=== PATIENT | female | born 1980 | race Caucasian/White ===

== ENCOUNTER → 2017-01-30 | Day surgery (SDC) | payer BC ==
[2017-01-22 12:41] VITALS: Ht 177.8 cm; Wt 94.5 kg
[~2017-01-30] VITALS: Ht 177.8 cm; Wt 94.5 kg
[~2017-01-30] MED LIST: BUSP15TA70 PO; CHOL1000 PO; CITA20TA9 PO; DULO-24 PO; KLN5X PO; LIDOCAINE HCL 2% 2 ML VIAL (20MG/ML) ONE; MISCCAP80 PO; MULT-506 PO; ONDANSETRON INJ 2 MG/ML 2 ML VIAL ONE; PROPOFOL IV EMULSION 10 MG/ML 20 ML VIAL IV ONE; SODIUM CHLORIDE 0.9% 500ML 500 ML IV ONE; [UNRECOGNIZED DRUG - CODE] PO
--- NOTE | 2017-01-30 13:37 | Endo History and Physical ---
History & Physical Date of Service: Jan 30, 2017. Chief Complaint: ABD. CRAMPING, CHANGE IN BOWEL HABITS Referring Physician: DANNIE BROOKS PA-C History of Present Illness 36 yo CF who presents for colonoscopy secondary to abdominal cramping and change in bowel habits. Past Surgical History Hx Cardiac Surgery: No Hx Internal Defibrillator: No Hx Pacemaker: No Hx Abdominal Surgery: Yes (LT/RT INGUINAL HERNIA REPAIR) Hx of Implantable Prosthesis: No Hx Post-Op Nausea and Vomiting: Yes Hx Cancer Surgery: No Hx Thoracic Surgery: No Hx Orthopedic: No Hx Urinary Tract Surgery: No Family History None Social History Smoking Status: Never Smoker Hx Substance Use: No Hx Alcohol Use: Yes (SELDOM) Allergies Coded Allergies: Amoxicillin (Unverified Allergy, Mild, DIARRHEA, 01/30/17) Clavulanic Acid (Unverified Allergy, Mild, DIARRHEA, 01/30/17) Iodinated Diagnostic Agents (Verified Allergy, Unknown, N/V, 01/22/17) Current Medications Reported Home Medications Medications Dose Route/Sig Max Daily Dose Days Date Category Probiotic (Probiotic Product) 1 Cap Cap 1 Cap PO HS 01/22/17 Reported Nac (Acetylcysteine (Nutrient)) 500 Mg Cap 1 Cap PO HS 01/22/17 Reported Vitamin D3 (Cholecalciferol) 1,000 Unit Tab 1 Tab PO QAM 01/22/17 Reported Multivitamin (Multivitamins) Tab 1 Tab PO QAM 01/22/17 Reported Cymbalta (Duloxetine HCl) 20 Mg Cap 1 Cap PO QAM 01/22/17 Reported Clonazepam 0.5 Mg Tab 0.5 Mg PO BID PRN 11/14/14 Reported Buspar (Buspirone Hcl) 15 Mg Tab 15 Mg PO BID 11/14/14 Reported Celexa (Citalopram Hydrobromide) 20 Mg Tab 1.5 Tab PO HS 02/08/12 Reported Vital Signs Weight (Kilograms): 94.55 Height (Feet): 5 Height (Inches): 10 Date Time Temp Pulse Resp B/P (MAP) Pulse Ox O2 Delivery O2 Flow Rate FiO2 01/30/17 13:21 36.5 66 16 104/64 (77) 95 Room Air Physical Exam General Appearance: WD/WN, no apparent distress Respiratory/Chest: Auscultation: breath sounds normal Cardiovascular: Heart Auscultation: RRR Abdomen: Bowel Sounds: normal Inspection & Palpation: soft, non-distended, no tenderness, guarding & rebound Assessment and Plan Assessment: 36 yo CF who presents for colonoscopy secondary to abdominal cramping and change in bowel habits. Plan: Proceed with colonoscopy.
--- NOTE | 2017-01-30 14:34 | Discharge Instructions ---
Endoscopy Patient Instructions Date / Procedure(s) Performed Jan 30, 2017. Colonoscopy Allergy Information Coded Allergies: Amoxicillin (Unverified Allergy, Mild, DIARRHEA, 01/30/17) Clavulanic Acid (Unverified Allergy, Mild, DIARRHEA, 01/30/17) Iodinated Diagnostic Agents (Verified Allergy, Unknown, N/V, 01/22/17) Discharge Date / Findings Jan 30, 2017. Rectal polyp Random colon biopsies Medication Instructions OK to resume all medications today as prescribed Reported Home Medications Medications Dose Route/Sig Max Daily Dose Days Date Category Probiotic (Probiotic Product) 1 Cap Cap 1 Cap PO HS 01/22/17 Reported Nac (Acetylcysteine (Nutrient)) 500 Mg Cap 1 Cap PO HS 01/22/17 Reported Vitamin D3 (Cholecalciferol) 1,000 Unit Tab 1 Tab PO QAM 01/22/17 Reported Multivitamin (Multivitamins) Tab 1 Tab PO QAM 01/22/17 Reported Cymbalta (Duloxetine HCl) 20 Mg Cap 1 Cap PO QAM 01/22/17 Reported Clonazepam 0.5 Mg Tab 0.5 Mg PO BID PRN 11/14/14 Reported Buspar (Buspirone Hcl) 15 Mg Tab 15 Mg PO BID 11/14/14 Reported Celexa (Citalopram Hydrobromide) 20 Mg Tab 1.5 Tab PO HS 02/08/12 Reported Provider Instructions Activity Restrictions - No exercising or heavy lifting for 24 hours. - Do not drink alcohol the day of the procedure. - Do not drive a car or operate machinery until the day after the procedure. - Do not make any important decisions or sign important papers in 24 hours after the procedure. Following Day: - Return to full activity which may include returning to work/school. Diet Start your diet with liquids and light foods (jello, soup, juice, toast). Then eat your usual diet if not nauseated. Treatment For Common After Affects For mild abdominal pain, bloating, or excessive gas: - Rest - Eat lightly - Lie on right side Follow-Up Information Follow-up with DANNIE BROOKS PA-C as scheduled Anesthesia Information What You Should Know You have had a procedure that required some medicine to reduce anxiety and discomfort. This treatment is called moderate sedation. After receiving the treatment, you may be sleepy, but you will be able to breathe on your own. The effects of the treatment may last for several hours. Follow these instructions along with Activity/Diet recommendations noted above: * Do NOT do anything where dizziness or clumsiness would be dangerous. * Rest quietly at home today, then you can be up and about tomorrow. * Have a responsible person stay with you the rest of today. * You may have had an I.V. today. If so, you may take the dressing off later today. Recommendations Call your doctor if: * Trouble breathing * Continuous vomiting for more than 24 hours * Temperature above 101 degrees * Severe abdominal pain or bloating * Pain not relieved by pain medicine ordered * There is increased drainage or redness from any incision * A large amount of rectal bleeding greater than 2-3 tablespoons. (If you had a polyp/s removed or have hemorrhoids, a small amount of blood - from the rectum is to be expected.) * You have any unanswered questions or concerns. IN THE EVENT OF A SERIOUS EMERGENCY, GO TO THE NEAREST EMERGENCY ROOM Your discharge instructions were prepared by provider Kaleb Rowell. Patient Instructions Signature Page Jo Potts Patient (or Guardian) Signature/Date: I have read and understand the instructions given to me by my caregivers. Caregiver/RN/Doctor Signature/Date: The above-named patient and/or guardian has received patient instructions on this date. + Original Patient Signature Page (only) stays with chart. Please make copy for patient.
--- NOTE | 2017-01-30 14:43 | GI REPORT ---
Procedure Date: 01/30/2017 2:08 PM Procedure: Colonoscopy Indications: Generalized abdominal pain, Change in bowel habits Medicines: Monitored Anesthesia Care Complications: No immediate complications. Estimated Blood Loss: Estimated blood loss: none. Procedure: Pre-Anesthesia Assessment: - Prior to the procedure, a History and Physical was performed, and patient medications and allergies were reviewed. The patient's tolerance of previous anesthesia was also reviewed. The risks and benefits of the procedure and the sedation options and risks were discussed with the patient. All questions were answered, and informed consent was obtained. Prior Anticoagulants: The patient has taken no previous anticoagulant or antiplatelet agents. ASA Grade Assessment: II - A patient with mild systemic disease. After reviewing the risks and benefits, the patient was deemed in satisfactory condition to undergo the procedure. After I obtained informed consent, the scope was passed under direct vision. Throughout the procedure, the patient's blood pressure, pulse, and oxygen saturations were monitored continuously. The scope was introduced through the anus and advanced to the terminal ileum. The colonoscopy was performed without difficulty. The patient tolerated the procedure well. The quality of the bowel preparation was good. Anatomical landmarks were photographed. Findings: A 3 mm polyp was found in the rectum. The polyp was sessile. The polyp was removed with a cold biopsy forceps. Resection and retrieval were complete. Several random biopsies were obtained with cold forceps for histology in the entire colon. Impression: - One 3 mm polyp in the rectum, removed with a cold biopsy forceps. Resected and retrieved. - Several random biopsies were obtained in the entire colon. Recommendation: - Resume previous diet. - Continue present medications. - Repeat colonoscopy for surveillance based on pathology results. - Return to primary care physician as previously scheduled. Kaleb Rowell DO 01/30/2017 2:43:26 PM This report has been signed electronically. Note Initiated On: 01/30/2017 2:08 PM I attest to the content of the Intraoperative Record and orders documented therein, exceptions below
--- NOTE | 2017-01-30 14:54 | Anesthesiology Progress Note ---
Anesthesia Post Op Note Date & Time Jan 30, 2017 at 14:53 Vital Signs Pain Intensity: 0 Vital Signs Past 12 Hours Date Time Temp Pulse Resp B/P (MAP) Pulse Ox O2 Delivery O2 Flow Rate FiO2 01/30/17 14:51 55 16 92/66 (75) 100 Room Air 01/30/17 14:37 36.4 57 16 100/62 (75) 97 Room Air 01/30/17 13:21 36.5 66 16 104/64 (77) 95 Room Air Notes Mental Status: alert / awake / arousable, participated in evaluation Pt Amnestic to Procedure: Yes Nausea / Vomiting: adequately controlled Pain: adequately controlled Airway Patency, RR, SpO2: stable & adequate BP & HR: stable & adequate Hydration State: stable & adequate Anesthetic Complications: no major complications apparent
[2017-01-30 15:07] VITALS: BP 103/71; PULSE 54; O2SAT 100
== END | disposition home or self-care (01) ==
LOC: C.GI 12:53
PROVIDERS: ATTEND Internal Medicine
DX: R10.84 Generalized abdominal pain (principal); R19.4 Change in bowel habit; K62.1 Rectal polyp; Z68.30 Body mass index [BMI] 30.0-30.9, adult; F32.9 Major depressive disorder, single episode, unspecified; F41.9 Anxiety disorder, unspecified; Z98.890 Other specified postprocedural states; Z88.1 Allergy status to other antibiotic agents